=== PATIENT | male | born 1965 | race Caucasian/White ===

== ENCOUNTER → 2021-04-04 | Day surgery (SDC) | payer OTHER ==
[~2021-04-04] VITALS: Ht 172.7 cm; Wt 127.0 kg
[~2021-04-04] MED LIST: ABILIFY10 MG PO; ACETAMINOPHEN500 M1 PO; ALLOPURINOL300 MG PO; ASPIRIN EC81 MG PO; CELEBREX **OUT100 MG PO; CELEXA20 MG PO; COLACE100 MG PO; COREG12.5 MG PO; DEMADEX20 MG PO; DIAZEPAM 5MG TAB5 MG PO; HUMALOG 75100 UNIT/M PO; JARDIANCE10 MG PO; METFORMIN HCL500 MG PO; NEURONTIN400 MG PO; OXY-IR 5MG5 MG PO; PRILOSEC20 MG PO; SYMBICORT 80-10.2 GM INH; TRESIBA FL200 UNIT/1 SC; ULTRAM50 MG PO; UROCIT-K10 MEQ PO; VASCEPA1 GM PO
[2021-04-04 07:34] LABS: HCT 43.5 % (42.0-52.0); HGB 14.7 g/dl (13.2-18.0); MCH 28.1 pg (25.0-31.0); MCHC 33.8 g/dL (32.0-36.0); MCV 83.2 fL (78.0-100.0); MPV 11.4 fL (6.0-9.5); RBC 5.23 M/uL (4.70-6.00); RDW 14.3 % (11.5-14.0); WBC 8.2 K/uL (4.0-10.5)
[2021-04-04 07:53] LABS: BUN/CREAT RATIO (CALC) 13.8 RATIO; CREATININE 0.94 mg/dL (0.67-1.17); POTASSIUM 3.2 mmol/L (3.5-5.1)
== END | disposition home or self-care (01) ==
LOC: FAS 06:21
PROVIDERS: Student in an Organized Health Care Education/Training Program
DX: K43.2 Incisional hernia without obstruction or gangrene (principal); L72.0 Epidermal cyst; I42.9 Cardiomyopathy, unspecified; J44.9 Chronic obstructive pulmonary disease, unspecified; I50.9 Heart failure, unspecified; E11.21 Type 2 diabetes mellitus with diabetic nephropathy; E11.40 Type 2 diabetes mellitus with diabetic neuropathy, unspecified; K21.9 Gastro-esophageal reflux disease without esophagitis; I11.0 Hypertensive heart disease with heart failure; E78.00 Pure hypercholesterolemia, unspecified; E78.1 Pure hyperglyceridemia; M81.0 Age-related osteoporosis without current pathological fracture; E55.9 Vitamin D deficiency, unspecified; Z79.82 Long term (current) use of aspirin; Z79.84 Long term (current) use of oral hypoglycemic drugs; Z79.4 Long term (current) use of insulin; Z87.891 Personal history of nicotine dependence
CPT/HCPCS: 36415; 80048; 93005; C1713; C1781; J0690; J1100; J1644; J1885; J2250; J2405; J2704; J2710; J3010; J7120

== ENCOUNTER 2021-10-31 16:09 | Emergency (ER) | payer OTHER ==
[2021-10-31 17:42] LABS: BASOPHIL 1.3 % (0-2); EOSINOPHIL 3.3 % (0-5); HCT 44.5 % (42.0-52.0); HGB 15.5 g/dl (13.2-18.0); LYMPHOCYTE 22.7 % (15-48); MCH 29.2 pg (25.0-31.0); MCHC 34.8 g/dL (32.0-36.0); MCV 83.8 fL (78.0-100.0); MONOCYTE 5.7 % (0-12); MPV 11.5 fL (6.0-9.5); NEUTROPHIL 66.4 % (41-80); NRBC 0; PLT 176 K/uL (150-400); RBC 5.31 M/uL (4.70-6.00); RDW 14.6 % (11.5-14.0)
[2021-10-31 17:44] LABS: BILIRUBIN NEGATIVE (NEGATIVE); BLOOD NEGATIVE Ery/uL (NEGATIVE); CLARITY CLEAR (CLEAR); COLOR YELLOW (YELLOW); GLUCOSE (U) 3+ mg/dL (NORMAL); LEUKOCYTES NEGATIVE Leu/uL (NEGATIVE); NITRITE NEGATIVE (NEGATIVE); PROTEIN NEGATIVE (NEGATIVE); SPECIFIC GRAVITY <=1.005 (1.001-1.030); UROBILINOGEN 0.2 mg/dL (0.2-1.0)
[2021-10-31 18:35] LABS: CREATININE 0.83 mg/dL (0.67-1.17)
[2021-10-31 18:39] LABS: ALBUMIN 3.4 g/dL (3.4-5.0); ALKALINE PHOSHATASE 142 U/L (46-116); AMYLASE 38 U/L (25-115); BILIRUBIN - TOTAL 0.7 mg/dL (0.2-1.0); BUN 18 mg/dL (7-18); CO2 (BICARBONATE) 23 mmol/L (21-32); LIPASE 183 U/L (73-393); TOTAL PROTEIN 7.4 g/dL (6.4-8.2)
[2021-10-31 18:40] LABS: GLUCOSE 461 mg/dL (74-106)
[2021-10-31 19:12] LABS: CHLORIDE 90 mmol/L (98-107)
== END 2021-10-31 23:32 | disposition home or self-care (01) ==
LOC: FER 16:09
PROVIDERS: Nurse Practitioner Family
DX: R10.84 Generalized abdominal pain (principal); E11.65 Type 2 diabetes mellitus with hyperglycemia; I50.9 Heart failure, unspecified
CPT/HCPCS: 36415; 80053; 81003; 82009; 82150; 83036; 83690; 85025; J7030; Q9967